=== PATIENT | female | born 2000 | race Caucasian/White ===

== ENCOUNTER 2021-07-20 02:31 | Emergency (ER) | payer BC ==
[~2021-07-20] VITALS: Ht 170.2 cm; Wt 70.5 kg
[2021-07-20 02:50] VITALS: BP 131/77
[2021-07-20] MEDS ORDERED: CLINDAMYCIN HCL 150 MG CAPSULE PO ONE (03:15)
[2021-07-20] MEDS ORDERED: HYDROcodone/APAP 7.5/325MG 1 TAB TABLET PO ONE (03:15)
[2021-07-20] MEDS ORDERED: HYDR-2759 PO (03:21)
[2021-07-20] MEDS ORDERED: CLIN-95 PO (03:21)
--- NOTE | 2021-07-20 03:22 | PHYS DOC ---
Past History Past Surgical History: Other Additional Past Surgical Histo: WISDOM TEETH Alcohol Use: Occasionally General Adult EDM: Chief Complaint: DENTAL PROBLEM HPI: HPI: 21-year-old female presents with dental pain and drainage. Patient states that she had all of her wisdom teeth removed few days ago. She was doing fine until Wednesday. She started to have swelling in the right lower portion of her mouth. She also has a foul tasting discharge coming from that side. She is unable to sleep. The pain is keeping her awake. She is concerned about infection. She was not given an antibiotic or pain medication by the surgeon. She has no other complaints at this time. Review of Systems: Review of Systems: Constitutional: Denies fever or chills Eyes: Denies change in visual acuity HENT: Dental pain Respiratory: Denies cough or shortness of breath Cardiovascular: Denies chest pain or edema GI: Denies abdominal pain, nausea, vomiting, bloody stools or diarrhea : Denies dysuria Musculoskeletal: Denies back pain or joint pain Integument: Denies rash Neurologic: Denies headache, focal weakness or sensory changes Endocrine: Denies polyuria or polydipsia Lymphatic: Denies swollen glands Psychiatric: Denies depression or anxiety Current Medications: Current Meds: Current Medications Medications (Trade) Dose Ordered Sig/Jannet Start Time Stop Time Status Last Admin Dose Admin Acetaminophen/ Hydrocodone Bitart (Lortab 7.5/325) 1 tab 1X ONCE 07/20/21 03:15 07/20/21 03:16 UNV Clindamycin HCl (Cleocin) 450 mg 1X ONCE 07/20/21 03:15 07/20/21 03:16 UNV Allergies: Allergies: Allergies Coded Allergies Type Severity Reaction Last Updated Verified No Known Drug Allergies 07/20/21 No Physical Exam: PE: Constitutional: Well developed, well nourished, no acute distress, non-toxic appearance. [] HENT: Normocephalic, atraumatic, bilateral external ears normal, oropharynx moist, no oral exudates, nose normal. Swelling of the right lower gums with purulent drainage. [] Eyes: PERRLA, EOMI, conjunctiva normal, no discharge. [] Neck: Normal range of motion, tenderness and enlargement of the right anterior cervical lymph nodes, supple, no stridor. [] Cardiovascular: Heart rate regular rhythm, no murmur [] Lungs & Thorax: Bilateral breath sounds clear to auscultation [] Abdomen: Bowel sounds normal, soft, no tenderness, no masses, no pulsatile masses. [] Skin: Warm, dry, no erythema, no rash. [] Back: No tenderness, no CVA tenderness. [] Extremities: No tenderness, no cyanosis, no clubbing, ROM intact, no edema. [] Neurologic: Alert and oriented X 3, normal motor function, normal sensory function, no focal deficits noted. [] Psychologic: Affect normal, judgement normal, mood normal. [] Current Patient Data: Vital Signs: Vital Signs Date Time Temp Pulse Resp B/P (MAP) Pulse Ox O2 Delivery O2 Flow Rate FiO2 07/20/21 02:50 96.6 65 18 131/77 (95) 100 Room Air EKG: EKG: [] Radiology/Procedures: Radiology/Procedures: [] Heart Score: C/O Chest Pain: N/A Risk Factors: Risk Factors: DM, Current or recent (<one month) smoker, HTN, HLP, family history of CAD, obesity. Risk Scores: Score 0 - 3: 2.5% MACE over next 6 weeks - Discharge Home Score 4 - 6: 20.3% MACE over next 6 weeks - Admit for Clinical Observation Score 7 - 10: 72.7% MACE over next 6 weeks - Early Invasive Strategies Course & Med Decision Making: Course & Med Decision Making Pertinent Labs and Imaging studies reviewed. (See chart for details) Patient appears to have purulent drainage from the right lower quadrant of her mouth. I will treat her with clindamycin and give her Dana for pain. We will give the first dose in the emergency room. She is stable for discharge at this time. [] Dragon Disclaimer: Dragon Disclaimer: This electronic medical record was generated, in whole or in part, using a voice recognition dictation system. Departure Departure: Impression: Primary Impression: Dental infection Disposition: HOME / SELF CARE / HOMELESS Condition: STABLE Referrals: MARCK VIRGEN MD (PCP) Patient Instructions: Dental Abscess Scripts Clindamycin Hcl (CLINDAMYCIN HCL) 300 Mg Capsule 1 CAP PO TID for dental infection, #21 CAP Prov: UMU HENRIQUEZ DO 07/20/21 Hydrocodone/Acetaminophen (Hydrocodone-Acetamin 5-325 mg) 1 Each Tablet 1 EACH PO Q4-6HRS PRN for PAIN, #10 TAB Prov: UMU HENRIQUEZ DO 07/20/21 UMU HENRIQUEZ DO July 20, 2021 03:22
== END 2021-07-20 03:31 | disposition home or self-care (01) ==
LOC: ER 02:31
DX: K04.7 Periapical abscess without sinus (principal)
CPT/HCPCS: 99283